=== PATIENT | male | born 1980 | race Caucasian/White ===

== ENCOUNTER 2019-08-03 20:49 | Observation (INO) ==
[2019-08-03] MEDS ORDERED: GI COCKTAIL ED USE PO ONE (21:38)
[2019-08-03] MEDS ORDERED: ONDANSETRON INJ 2 MG/ML 2 ML VIAL IV STA (21:38)
[2019-08-03] MEDS ORDERED: SODIUM CHLORIDE 0.9% 1000ML 1,000 ML IV SCH (21:45)
[2019-08-03 22:00] LABS: Basophils # (auto) 0.02 K/uL (0-0.2); Basophils % (auto) 0.2 %; Eosinophils # (auto) 0.05 K/uL (0-0.5); Eosinophils % (auto) 0.6 %; Hematocrit (blood only) 44.7 % (42-52); Hemoglobin 15.2 g/dL (14.0-18.0); Immature Granulocytes # (auto) 0.02 K/uL (0.00-0.02); Immature Granulocytes % (auto) 0.2 %; Lymphocytes # (auto) 1.56 K/uL (1.2-3.4); Lymphocytes % (auto) 18.5 %; Mean Corpuscular Hemoglobin 31.7 pg (25-34); Mean Corpuscular Volume 93.1 fL (80-100); Mean Platelet Volume 8.8 fL (7.4-10.4); Monocytes # (auto) 0.62 K/uL (0.11-0.59); Monocytes % (auto) 7.3 %; Neutrophils # (auto) 6.18 K/uL (1.4-6.5); Neutrophils % (auto) 73.2 %; Platelet Count 214 K/uL (130-400); RDW Coefficient of Variation 12.7 % (11.5-14.5); RDW Standard Deviation 43.2 fL (36.4-46.3); White Blood Count 8.45 K/uL (4.8-10.8)
[2019-08-03 22:13] LABS: Appearance Urine Clear (Clear); Bilirubin Urine Negative (Negative); Blood Urine Negative (Negative); Color Urine Yellow; Glucose Urine UA Negative (Negative); Ketones Urine Negative (Negative); Leukocyte Esterase Urine Negative (Negative); Nitrite Urine Negative (Negative); Protein Urine Negative (Negative); Specific Gravity Urine 1.017 (1.000-1.030); Urobilinogen Urine Positive (Negative); pH Urine 7.5 (4.5-7.5)
[2019-08-03 22:15] LABS: Alanine Aminotransferase 140 U/L (12-78); Albumin Level 3.6 gm/dl (3.4-5.0); Aspartate Aminotransferase 163 U/L (15-37); Blood Urea Nitrogen 13 mg/dl (7-18); Carbon Dioxide 29 mmol/L (21-32); Chloride 106 mmol/L (98-107); Creatinine Clr Calc Pharmacy 140.2 ml/min; Est GFR (African American) 129.1; Est GFR (Non-African American) 111.4; Glucose 106 mg/dl (70-99); Lipase 102 U/L (73-393); Sodium 140 mmol/L (136-145)
[2019-08-03 22:20] LABS: Alkaline Phosphatase 67 U/L (45-117); Globulin 3.4 gm/dl (2.5-4.0); Troponin I < 0.015 ng/ml (0-0.045)
--- NOTE | 2019-08-03 22:46 | Ultrasound Report ---
US gallbladder HISTORY: 38 years-old Male epi pain acute epigastric abdominal pain COMPARISON: None available TECHNIQUE: Multiple real-time sonographic images of the abdominal right upper quadrant were obtained assessing grayscale appearance and color flow FINDINGS: Pancreas is mostly obscured by bowel gas. The liver appears unremarkable.. Hepatopedal flow noted wit hin the main portal vein. No focal hepatic mass or intrahepatic biliary ductal dilation. Mildly diste nded gallbladder. Additionally, there is mild gallbladder wall thickening measuring up to at least 4 mm. No definite pericholecystic fluid. Layering cholelithiasis and gallbladder sludge. Sonographic Mu rphy sign reported as negative. Normal common bile duct, 5 mm. Imaged right kidney is unremarkable wi thout hydronephrosis. IMPRESSION: 1. Cholelithiasis and gallbladder sludge is noted with mild gallbladder distention and wall thickenin g. The sonographic Lopez sign was reported as negative and no pericholecystic fluid is evident. Find ings are equivocal for acute cholecystitis. Findings could be correlated with nuclear medicine hepato biliary scan if of further clinical concern. 2. No biliary ductal dilation. ACT 112: Negative or not required by law. The above report was generated using voice recognition software. It may contain grammatical, syntax o r spelling errors. Electronically signed by: Bala Blakely M.D. 08/03/2019 10:45 PM
[2019-08-03] MEDS ORDERED: cefOXitin 2,000 MG/60 ML BAG IV STA (23:25)
[2019-08-04] MEDS: LACTATED RINGER'S 1,000 ML IV SCH ×2 (00:55→08:15)
[2019-08-04] MEDS ORDERED: MoRPHine SULFATE 4 MG/ML 1 ML CARP\\VIAL IV PRN (00:59)
[2019-08-04] MEDS ORDERED: ACETAMINOPHEN 1,000 MG/100 ML VIAL IV PRN (00:59)
[2019-08-04] MEDS ORDERED: ONDANSETRON INJ 2 MG/ML 2 ML VIAL IV PRN ×2 (00:59→14:24)
[2019-08-04] MEDS ORDERED: MoRPHine SULFATE 2 MG/ML CARP IV PRN (00:59)
--- NOTE | 2019-08-04 02:35 | Emergency Department Note ---
History of Present Illness General Chief complaint: Abdominal Pain Stated complaint: ABD PAIN History of Present Illness This 38 yo presents to the ER complaining of abdominal pain Location: Upper abdomen Quality: Uncomfortable Severity: Moderate Duration: Tonight Timing: Symptoms started tonight Context: Patient was concerned and came in Modifying factors: better with nothing; worse with activity Patient had a gastric sleeve surgery 2 years ago. He has lost a lot of weight. Patient denies chest pain, dyspnea, fevers, diarrhea, urinary symptoms. He still has his gallbladder. Home Medications Home Medications Medication Instructions Recorded Confirmed Type Bariatric Multivitamins 1 cap PO DAILY 08/03/19 08/03/19 History cefadroxil 500 mg PO BID 08/03/19 08/03/19 History montelukast 10 mg PO DAILY 08/03/19 08/03/19 History sulfacetamide sodium (acne) 1 applic TOPICAL BID 08/03/19 08/03/19 History [[place]] hydrocodone-acetaminophen [[place]] 1 - 2 tab PO Q6H #20 tab 08/04/19 Rx Allergies Allergy/AdvReac Type Severity Reaction Status Date / Time No Known Allergies Allergy Unverified 08/03/19 22:35 Past Med/Surg History Social History Preferred Language: Kinyarwanda Communication Ability: Effective Mercury Cell Cleaner Required: No Beliefs That Will Affect Care: None Current Living Situation: Spouse Feels Safe at Home: Yes Smoking Status: Former smoker Hx Alcohol Use: No Hx Substance Use: No Review of Systems A total of 10 systems reviewed and were otherwise negative Physical Exam Vital Signs Vital Signs - 24 hr 08/03/19 20:54 08/03/19 21:42 08/03/19 23:01 Temperature 36.4 C L Temperature Source Oral Pulse Rate 62 Pulse Rate [Finger] Pulse Rate from SpO2 Sensor Respiratory Rate 20 Respiratory Effort / Characteristics Non-Labored Spontaneous Respiratory Depth Normal Blood Pressure 188/122 H Blood Pressure [Right Arm] 164/101 H Blood Pressure Mean 144 Blood Pressure Mean [Right Arm] 122 Blood Pressure Position Sitting Pulse Oximetry 100 99 Oxygen Delivery Method Room Air Room Air Sepsis Recent Fever Within 48 Hours No Sepsis Action Taken by Nursing No Action Required 08/03/19 23:24 08/03/19 23:30 Temperature Temperature Source Pulse Rate 66 Pulse Rate [Finger] 55 L Pulse Rate from SpO2 Sensor 62 Respiratory Rate 18 19 Respiratory Effort / Characteristics Non-Labored Respiratory Depth Normal Blood Pressure 166/105 H Blood Pressure [Right Arm] 170/107 H Blood Pressure Mean 111 Blood Pressure Mean [Right Arm] 128 Blood Pressure Position Pulse Oximetry 100 98 Oxygen Delivery Method Room Air Sepsis Recent Fever Within 48 Hours Sepsis Action Taken by Nursing VITALS: Vitals are noted on the nurse's note and reviewed by myself. Vital signs stable. GENERAL: Pleasant male, in no acute distress, nondiaphoretic, well-developed well-nourished. SKIN: Capillary reflex less than 2 seconds. HEENT: Normocephalic. PERRLA. EOMI. Nares patent. Mucous membranes moist. Neck is supple without nuchal rigidity. HEART: Regular rate and rhythm without murmurs gallops or rubs. LUNGS: Clear to auscultation bilaterally without wheezes, rales or rhonchi. No retractions or accessory muscle use. ABDOMEN: Positive bowel sounds x 4. Normal tympanic percussion. Soft, tender to palpation epigastric right upper quadrant, without masses or organomegaly. No guarding or rebound tenderness. No CVA tenderness MUSCULOSKELETAL: No gross musculoskeletal defects. NEURO: Patient was alert and oriented to person place and time. Normal sensation to light and sharp touch. No focal neurological deficits. Course Administered Medications Discontinued Medications Al Hydrox/Mg Hydrox/Simethicone () 1 dose PO ONE ONE Stop: 08/03/19 21:39 Last Admin: 08/03/19 21:56 Dose: 1 dose Documented by: [id number] Bupivacaine HCl/Epinephrine Bitart (Sensorcaine/Epinephrine 0.5% Mpf 1:200,000) Confirm Administered Dose 10 ml .ROUTE .STK-MED ONE Stop: 08/04/19 14:35 Last Admin: 08/04/19 15:24 Dose: 20 ml Documented by: [id number] Sodium Chloride (Nss 1000ml) 1,000 mls @ 999 mls/hr IV .Q1H1M ANA Stop: 08/03/19 22:45 Last Infusion: 08/03/19 23:07 Dose: 0 mls/hr Documented by: [id number] Admin: 08/03/19 21:56 Dose: 999 mls/hr Documented by: [id number] Cefoxitin Sodium (Mefoxin) 2,000 mg in 60 mls @ 100 mls/hr IV NOW STA Stop: 08/04/19 00:00 Last Infusion: 08/04/19 00:18 Dose: 0 mls/hr Documented by: [id number] Admin: 08/03/19 23:35 Dose: 100 mls/hr Documented by: [id number] Lactated Ringer's (Lr) 1,000 mls @ 125 mls/hr IV .Q8H ANA Stop: 09/03/19 00:58 Last Infusion: 08/04/19 14:12 Dose: 125 mls/hr Documented by: [id number] Admin: 08/04/19 08:15 Dose: 125 mls/hr Documented by: [id number] Infusion: 08/04/19 08:15 Dose: 125 mls/hr Documented by: [id number] Admin: 08/04/19 00:55 Dose: 125 mls/hr Documented by: [id number] Cefazolin Sodium (Ancef 2000mg) 2,000 mg in 15 mls @ 3.75 mls/min IV PREOP ONE Stop: 08/04/19 15:21 Last Admin: 08/04/19 14:58 Dose: 3.75 mls/min Documented by: [id number] Ondansetron HCl (Zofran) 4 mg IV NOW STA Stop: 08/03/19 21:39 Last Admin: 08/04/19 01:10 Dose: Not Given Documented by: [id number] Medical Decision Making Medical Records Attestation: I reviewed the patient's medical records. Home Medications Current Medication List: was personally reviewed by me Laboratory Data Attestation: I reviewed the patient's lab results. Result diagrams: 08/03/19 21:45 08/03/19 21:45 Lab Results 08/03/19 08/03/19 08/03/19 Range/Units 21:45 21:45 21:45 WBC 8.45 (4.8-10.8) K/uL RBC 4.80 (4.7-6.1) M/uL Hgb 15.2 (14.0-18.0) g/dL Hct 44.7 (42-52) % MCV 93.1 (80-100) fL MCH 31.7 (25-34) pg MCHC 34.0 (32-36) g/dL RDW Std Deviation 43.2 (36.4-46.3) fL RDW Coeff of Dipak 12.7 (11.5-14.5) % Plt Count 214 (130-400) K/uL MPV 8.8 (7.4-10.4) fL Immature Gran % (Auto) 0.2 % Neut % (Auto) 73.2 % Lymph % (Auto) 18.5 % [place] % (Auto) 7.3 % Eos % (Auto) 0.6 % Baso % (Auto) 0.2 % Immature Gran # (Auto) 0.02 (0.00-0.02) K/uL Neut # (Auto) 6.18 (1.4-6.5) K/uL Lymph # (Auto) 1.56 (1.2-3.4) K/uL [place] # (Auto) 0.62 H (0.11-0.59) K/uL Eos # (Auto) 0.05 (0-0.5) K/uL Baso # (Auto) 0.02 (0-0.2) K/uL Sodium 140 (136-145) mmol/L Potassium 4.0 (3.5-5.1) mmol/L Chloride 106 (98-107) mmol/L Carbon Dioxide 29 (21-32) mmol/L Anion Gap 5.0 (3-11) BUN 13 (7-18) mg/dl Creatinine 0.82 (0.6-1.4) mg/dl Est Cr Clr Drug Dosing 140.2 ml/min Est GFR ( Amer) 129.1 Est GFR (Non-Af Amer) 111.4 BUN/Creatinine Ratio 16.0 (10-20) Glucose 106 H (70-99) mg/dl Calcium 9.0 (8.5-10.1) mg/dl Total Bilirubin 1.0 (0.2-1) mg/dl AST 163 H (15-37) U/L ALT 140 H (12-78) U/L Alkaline Phosphatase 67 (45-117) U/L Troponin I < 0.015 (0-0.045) ng/ml Total Protein 7.0 (6.4-8.2) gm/dl Albumin 3.6 (3.4-5.0) gm/dl Globulin 3.4 (2.5-4.0) gm/dl Albumin/Globulin Ratio 1.0 (0.9-2) Lipase 102 (73-393) U/L Urine Color Yellow Urine Appearance Clear (Clear) Urine pH 7.5 (4.5-7.5) Ur Specific [place] 1.017 (1.000-1.030) Urine Protein Negative (Negative) Urine Glucose (UA) Negative (Negative) Urine Ketones Negative (Negative) Urine Blood Negative (Negative) Urine Nitrite Negative (Negative) Urine Bilirubin Negative (Negative) Urine Urobilinogen Positive H (Negative) Ur Leukocyte Esterase Negative (Negative) Imaging Data Attestation: I personally reviewed and interpreted this imaging study as follows: Blood Pressure Blood Pressure Findings: Elevated blood pressure Blood Pressure Disposition: Referred to patients primary care provider MDM Narrative Prior records/ancillary studies reviewed. Triage Nursing notes reviewed. Additional history obtained from family. The patient's history was concerning for abdominal pain. Differential diagnosis: Etiologies such as appendicitis, diverticulitis, PUD, biliary pathology, UTI, pancreatitis, obstruction, mesenteric ischemia, aortic pathology, infections, inflammatory bowel disease, renal colic, as well as others were entertained. Physical examination findings: As above. ER treatment provided: IV fluids, Zofran, GI cocktail On reassessment the patient felt better. Diagnostics interpreted by me: ECG: Ordered for epigastric pain EKG: Normal sinus, normal intervals, no acute ST-T wave changes. Impression normal sinus rhythm interpreted by myself I think arrhythmia is unlikely. EKG shows normal sinus rhythm with no interval abnormalities such as QT prolongation or WPW. There are no findings to suggest Brugada syndrome. Cardiac monitoring in the emergency department reveals no tachycardic or bradycardic dysrhythmia. Hypertrophic cardiomyopathy was considered but there are no clear historical elements pointing toward this. EKG is not suggestive. The QRS voltage is not extremely large and there are no suggestive Q waves. The labs revealed elevated LFTs, no leukocytosis Imaging studies: US gallbladder HISTORY: 38 years-old Male epi pain acute epigastric abdominal pain COMPARISON: None available TECHNIQUE: Multiple real-time sonographic images of the abdominal right upper quadrant were obtained assessing grayscale appearance and color flow FINDINGS: Pancreas is mostly obscured by bowel gas. The liver appears unremarkable.. Hepatopedal flow noted within the main portal vein. No focal hepatic mass or intrahepatic biliary ductal dilation. Mildly distended gallbladder. Additionally, there is mild gallbladder wall thickening measuring up to at least 4 mm. No definite pericholecystic fluid. Layering cholelithiasis and gallbladder sludge. Sonographic Lopez sign reported as negative. Normal common bile duct, 5 mm. Imaged right kidney is unremarkable without hydronephrosis. IMPRESSION: 1. Cholelithiasis and gallbladder sludge is noted with mild gallbladder distention and wall thickening. The sonographic Lopez sign was reported as negative and no pericholecystic fluid is evident. Findings are equivocal for acute cholecystitis. Findings could be correlated with nuclear medicine hepatobiliary scan if of further clinical concern. 2. No biliary ductal dilation. ACT 112: Negative or not required by law. The above report was generated using voice recognition software. It may contain grammatical, syntax or spelling errors. Electronically signed by: Bala Blakely M.D. Consultation: A consultation was placed with Dr. Rod. The case was discussed and diagnostics were reviewed. The patient was admitted to their service for possible cholecystectomy in the morning. Exam and history seem consistent with acute cholecystitis. Surgery was consulted and will admit the patient. Patient was started antibiotics. Patient is agreeable treatment plan of admission. By the evaluation outlined above emergent etiologies such as appendicitis, diverticulitis, UTI, pancreatitis, obstruction, mesenteric ischemia, aortic pathology, inflammatory bowel disease, renal colic, as well as others were deemed relatively unlikely. The pt informed about the findings as listed above. All questions were answered and pleased with the treatment. Case reviewed with my attending The chart was completed utilizing [employer] voice recognition software. Grammatical errors, random word insertions, pronoun errors, and incomplete sentences are an occassional consequence of this system due to software limitations, ambient noise, and hardware issues. Any formal questions or concerns about the content, text, or information contained within the body of this dictation should be directly addressed to the physician surveyor's assistant for clarification. Impression & Plan Acute cholecystitis Discharge Plan Visit Data *Final* Discharge Date/Time: 08/04/19 00:17 Chief Complaint: Abdominal Pain Stated Complaint: ABD PAIN ED Provider: Morgan Machuca ED Midlevel Provider: Renu Zelaya Discharge Problem: Acute cholecystitis Patient Disposition: Admitted As Inpatient Condition: Good Discharge Instructions Interventions: ED Discharge Assessment Last Done: 08/04/19 00:17
--- NOTE | 2019-08-04 09:25 | History & Physical Report ---
Date of Service August 04, 2019 Assessment & Plan (1) Acute cholecystitis: Clinically and radiographically consistent with acute cholecystitis. We discussed his options. We discussed the risks of cholecystectomy which would include bleeding, infection, DVT, PE, [place], CVA, injury to the bile ducts or bile leaks or injury to other organs etc. Following our discussion I answered his questions. Because he is from out of town he would prefer to have the gallbladder surgery today while he is here. We will proceed with laparoscopic possible open cholecystectomy today. History of Present Illness Primary Care Provider: NO PCP Patient has had about a 2 to 3-week history of postprandial epigastric to right upper quadrant discomfort with radiation into his back. Yesterday evening he had a severe bout which brought him to the emergency room. Ultrasound reveals stones and sludge as well as gallbladder wall thickening. Patient is feeling better this morning after some medication IV fluids and n.p.o. status. Allergies Allergy/AdvReac Type Severity Reaction Status Date / Time No Known Allergies Allergy Unverified 08/03/19 22:35 Home Medications Home Medications Medication Instructions Recorded Confirmed Type cefadroxil 500 mg PO BID 08/03/19 08/03/19 History montelukast 10 mg PO DAILY 08/03/19 08/03/19 History zmhceapaezst-fvx-obou-FA-vit K 1 cap PO DAILY 08/03/19 08/03/19 History [Bariatric Multivitamins] sulfacetamide sodium (acne) 1 applic TOPICAL BID 08/03/19 08/03/19 History [[place]] Past Med/Surg History Social History Preferred Language: Maltese Communication Ability: Effective Filling Hand Required: No Beliefs That Will Affect Care: None Current Living Situation: Spouse Feels Safe at Home: Yes Smoking Status: Former smoker Hx Alcohol Use: No Hx Substance Use: No Review of Systems All systems reviewed & are unremarkable except as noted in HPI & below Physical Exam Constitutional: WD/WN, vitals as above no acute distress and not ill appearing Eyes: PERRL, conjunctivae normal, anicteric sclerae EOM intact bilaterally ENMT: external ear and nose normal, oropharynx normal Ears: no hearing impairment Neck: trachea midline, no thyromegaly Respiratory: normal respiratory effort; no respiratory distress and does not use accessory muscles Cardiovascular: Rate/Rhythm: regular rate and regular rhythm Gastrointestinal (Abdomen): normal bowel sounds, soft, nontender, no hepatosplenomegaly Abdomen is soft with mild right upper quadrant tenderness. No guarding rebound or rigidity. Skin: no rashes, warm and dry Psychiatric: Orientation: alert, oriented x 3 and cooperative Results & Data Vital Signs (Past 12 Hours) Vital Signs Temp Pulse Pulse Resp BP BP BP 08/04/19 07:55 36.7 C 61 18 158/96 H 08/04/19 02:35 52 L 153/84 H 08/04/19 00:30 36.5 C 56 L 18 169/118 H 08/04/19 00:00 58 L 21 155/110 H 08/03/19 23:59 55 L 20 165/106 H 08/03/19 23:30 66 19 166/105 H 08/03/19 23:24 55 L 18 170/107 H 08/03/19 23:01 08/03/19 21:42 164/101 H Pulse Ox 08/04/19 07:55 96 08/04/19 02:35 08/04/19 00:30 98 08/04/19 00:00 100 08/03/19 23:59 98 08/03/19 23:30 98 08/03/19 23:24 100 08/03/19 23:01 99 08/03/19 21:42 Code Status & VTE Plan VTE Prophylaxis Plan VTE Prophylaxis will be ordered: Yes
[2019-08-04] MEDS ORDERED: fentaNYL citrate 100 MCG/2 ML VIAL ONE ×2 (14:21→15:22)
[2019-08-04] MEDS ORDERED: MIDAZOLAM HCL 1 MG/ML 2ML VIAL ONE (14:21)
--- NOTE | 2019-08-04 14:22 | Anesthesiology Consultation ---
Date of Service August 04, 2019 Assessment & Plan (1) History of sleeve gastrectomy: (2) Acute cholecystitis: (3) H/O gastric bypass: (4) Encounter for pre-operative examination: History Surgery Operation Date: 08/04/19 15:00 Proposed Procedures p Laparoscopic Cholecystectomy - Freeman Rod, DO Height/Weight Height: 5 ft 8 in Weight: 101.8 kg Allergies Allergy/AdvReac Type Severity Reaction Status Date / Time No Known Allergies Allergy Unverified 08/03/19 22:35 Medications Home Medications Medication Instructions Recorded Confirmed Last Taken cefadroxil 500 mg PO BID 08/03/19 08/03/19 07/12/19 montelukast 10 mg PO DAILY 08/03/19 08/03/19 Unknown uhrsrylgbpmx-rzg-ikpl-FA-vit K 1 cap PO DAILY 08/03/19 08/03/19 Unknown [Bariatric Multivitamins] sulfacetamide sodium (acne) 1 applic TOPICAL BID 08/03/19 08/03/19 Unknown [[place]] Active Medications Generic Name Dose Route Start Last Admin Trade Name Alex PRN Reason Stop Dose Admin Lactated Ringer's 1,000 mls @ 125 mls/hr 08/04/19 00:59 08/04/19 14:12 Lr IV 09/03/19 00:58 125 mls/hr .Q8H ANA Infusion NPO Date Last Intake of Fluids: 08/04/19 Time Last Intake of Fluids: 00:35 Date Last Intake of Solids: 08/04/19 Time Last Intake of Solids: 00:00 Social History Smoking Status: Former smoker Hx Alcohol Use: No Hx Substance Use: No Physical Exam Vital Signs Last Vital Signs Temp 36.7 C 08/04/19 07:55 Pulse 61 08/04/19 07:55 Resp 18 08/04/19 07:55 BP 158/96 H 08/04/19 07:55 Pulse Ox 96 08/04/19 07:55 Testing Laboratory Results 08/03/19 21:45 08/03/19 21:45 Urine Color Yellow 08/03/19 21:45 Urine Appearance Clear (Clear) 08/03/19 21:45 Urine pH 7.5 (4.5-7.5) 08/03/19 21:45 Ur Specific [place] 1.017 (1.000-1.030) 08/03/19 21:45 Urine Protein Negative (Negative) 08/03/19 21:45 Urine Glucose (UA) Negative (Negative) 08/03/19 21:45 Urine Ketones Negative (Negative) 08/03/19 21:45 Urine Nitrite Negative (Negative) 08/03/19 21:45 Ur Leukocyte Esterase Negative (Negative) 08/03/19 21:45
[2019-08-04] MEDS ORDERED: HYDROmorphone INJ 1 MG/ML SYRINGE IV PRN (14:24)
[2019-08-04] MEDS ORDERED: ePHEDrine sulfate 50 MG/ML AMP IV PRN (14:24)
[2019-08-04] MEDS ORDERED: fentaNYL citrate 100 MCG/2 ML VIAL IV PRN (14:24)
[2019-08-04] MEDS ORDERED: ATROPINE SULFATE 0.1 MG/ML 10ML SYR IV PRN (14:24)
[2019-08-04] MEDS ORDERED: SCOPOLAMINE 1.5 MG TDSY ONE (14:30)
[2019-08-04] MEDS ORDERED: BUPIVACAINE/EPINEPHRINE 0.5% MPF 1:200,000 10 ML VIAL ONE (14:34)
[2019-08-04] MEDS ORDERED: DEXAMETHASONE SOD INJ 4 MG/ML VIAL ONE (15:01)
[2019-08-04] MEDS ORDERED: LIDOCAINE HCL 2% 2 ML VIAL/AMP(20MG/ML) INFIL ONE (15:01)
[2019-08-04] MEDS ORDERED: ROCURONIUM BROMIDE 10 MG/ML 5 ML VIAL ONE (15:01)
[2019-08-04] MEDS ORDERED: GLYCOPYRROLATE 0.2 MG/ML VIAL ONE (15:01)
[2019-08-04] MEDS ORDERED: NEOSTIGMINE METHYLSULFATE 5 MG/5 ML SYR ONE (15:01)
[2019-08-04] MEDS ORDERED: PROPOFOL IV EMULSION 10 MG/ML 20 ML VIAL IV ONE (15:01)
[2019-08-04] MEDS ORDERED: ONDANSETRON INJ 2 MG/ML 2 ML VIAL ONE (15:01)
[2019-08-04] MEDS ORDERED: LARYING-O-JET KIT (LTA) ONE (15:04)
[2019-08-04] MEDS ORDERED: CEFAZOLIN 250 MG/ML 1 GM VIAL ONE (15:18)
[2019-08-04] MEDS ORDERED: CEFAZOLIN 2000MG 2,000 MG/15 ML SYR IV ONE (15:18)
--- NOTE | 2019-08-04 16:01 | Operative Report ---
[facility] Post Operative Report Pre & Post Diagnosis Operation Date: 08/04/19 15:00 Pre-Op Diagnosis: Acute CHOLECYSTITIS Post-Op Diagnosis: Acute CHOLECYSTITIS I identified the patient and participated in the time-out.: Yes Procedure Operation Date: 08/04/19 15:00 Actual Procedures p Laparoscopic Cholecystectomy(Not Applicable) - Freeman Rod DO Surgeon Freeman Rod DO Boxing Instructor n/a Estimated Blood Loss 5 Findings Consistent with Post-Op Diagnosis Specimens gallbladder Description of Procedure After informed consent was obtained the patient was taken to the operating room and placed in the supine position. After successful intubation the abdomen was sterilely prepped and draped in usual fashion. A periumbilical incision was made with an 11 blade scalpel and carried down through the soft tissue using electrocautery. The anterior rectus fascia was opened using electrocautery and 2 #0 Vicryl stay sutures were placed. The peritoneum was elevated with hemostats and incised under direct vision using Metzenbaum scissors. A finger sweep was performed and a 12 mm Arguello trocar was placed. The abdomen was insufflated to 18 mmHg. The laparoscope was inserted and the abdomen was examined in 360. No gross abnormalities were identified. A subxiphoid 5 mm port and 2 right upper quadrant 5 mm ports were placed under direct vision. The patient was placed in a reverse Trendelenburg position and slightly airplaned to the left. The gallbladder was grasped and elevated superiorly and laterally. A [place] dissector was used to take down adhesions around the neck of the gallbladder. The cystic duct was identified and skeletonized. It was clipped twice proximally and once distally and transected using a laparoscopic scissor. In similar fashion the cystic artery was identified and skeletonized clipped and divided. The gallbladder was removed from the gallbladder fossa with electrocautery. It did have some wall edema consistent with acute cholecystitis. It was placed into an Endo Catch bag. Thorough irrigation was performed. At the end of the procedure there was adequate hemostasis and no evidence of any bile leaks. A final look around the abdomen showed no other abnormalities. His previous sleeve gastrectomy looked fine. The gallbladder and trochars were all removed and the abdomen was desufflated. The fascia of the camera port was closed using 0 Vicryl in a [id number] fashion. All the wounds were irrigated and closed using 4-0 Monocryl. Marcaine was injected around them for postoperative analgesia and skin glue used as a dressing. The patient was awaken extubated and transferred to recovery in stable condition. I attest to the content of the Intraoperative Record and any orders documented therein. Any exceptions are noted below.
--- NOTE | 2019-08-04 16:13 | Anesthesiology Progress Note ---
Date of Service August 04, 2019 Anesthesia Post Procedure Vital Signs Vital Signs: Temp Pulse Pulse Pulse Resp BP BP 08/04/19 16:05 68 16 08/04/19 15:55 63 15 08/04/19 15:49 36.3 C L 86 14 08/04/19 07:55 36.7 C 61 18 158/96 H 08/04/19 02:35 52 L 153/84 H 08/04/19 00:30 36.5 C 56 L 18 169/118 H 08/04/19 00:00 58 L 21 155/110 H 08/03/19 23:59 55 L 20 165/106 H 08/03/19 23:30 66 19 166/105 H 08/03/19 23:24 55 L 18 08/03/19 23:01 08/03/19 21:42 08/03/19 20:54 36.4 C L 62 20 188/122 H BP Pulse Ox 08/04/19 16:05 150/88 H 100 08/04/19 15:55 158/93 H 100 08/04/19 15:49 174/96 H 100 08/04/19 07:55 96 08/04/19 02:35 08/04/19 00:30 98 08/04/19 00:00 100 08/03/19 23:59 98 08/03/19 23:30 98 08/03/19 23:24 170/107 H 100 08/03/19 23:01 99 08/03/19 21:42 164/101 H 08/03/19 20:54 100 Pain Intensity Upper Abdomen: Pain Intensity: 3 Transfer of Care Handoff Completed per policy Notes Mental Status: alert / awake / arousable and participated in evaluation Patient Amnestic to Procedure: Yes Nausea / Vomiting: adequately controlled Pain: adequately controlled Airway Patency, RR, SpO2: stable & adequate BP & HR: stable & adequate Hydration State: stable & adequate Anesthetic Complications: no major complications apparent and Pt Satisfied with anesthetic care
--- NOTE | 2019-08-10 10:40 | Discharge Summary ---
Date of Service August 10, 2019 Admission HPI Per Admitting Provider Patient has had about a 2 to 3-week history of postprandial epigastric to right upper quadrant discomfort with radiation into his back. Yesterday evening he had a severe bout which brought him to the emergency room. Ultrasound reveals stones and sludge as well as gallbladder wall thickening. Patient is feeling better this morning after some medication IV fluids and n.p.o. status. Principal Diagnosis Cholelithiasis, Acute cholecystitis Discharge Exam Gastrointestinal (Abdomen) Inspection/Auscultation: + abdominal surgical incision (clean, dry) Discharge Data Allergies Allergy/AdvReac Type Severity Reaction Status Date / Time No Known Allergies Allergy Unverified 08/03/19 22:35 Consultations 08/03/19 23:25 ED Decision to Admit Stat Procedures Performed Operation Date: 08/04/19 15:00 Actual Procedures p Laparoscopic Cholecystectomy(Not Applicable) - Freeman Rod DO Ordered Studies 08/03/19 21:41 gallbladder Stat Hospital Course (1) Acute cholecystitis: 38 y/o male presented to ED complaining of abdominal pain. Evaluation was consistent with acute cholecystitis. He was admitted the the surgical service overnight and taken to the operating room the next day for laparoscopic cholecystectomy. He was returned to his room and was able to tolerate an advancing diet and was stable for discharge later that evening. Total Time Total Time Spent Total Time Spent (In Minutes): 10 Discharge Plan Discharge Items Patient Disposition: Home - Self-Care Reason For Visit: CHOLECYSTITIS Discharge Diagnosis: cholecystitis Condition on Discharge: Good Activity: As commented below Lifting: No more than 10 pounds Bathing Comment: may shower. no tub soaks Exercise/Sports: Wait until after follow-up appointment Non-emergency contact: Surgeon Call non-emergency contact if: you have any medication questions, your pain is concerning for you, your temperature is above 101.5, your wound has increased redness and your wound has increased drainage Follow-up/Referrals: Freeman Rod DO [Surgeon] - PCP,NO [Primary Care Provider] - Diet: Regular Addtl Attending Provider Instructions: you may follow up with me or your pcp or a surgeon in your hometown. should see a physician within 1-2 weeks. Pending Studies at Discharge: Yes Studies:: pathology report Stand-Alone Forms: Call Back Authorization, [facility], Work/School Release (Inpt), Smoking Cessation Medications and DC Order Prescriptions: New hydrocodone-acetaminophen [[place]] 5-325 mg tablet 1 - 2 tab PO Q6H Qty: 20 RF: 0 Continued sulfacetamide sodium (acne) [[place]] 10 % suspension 1 applic TOPICAL BID RF: 0 cefadroxil 500 mg capsule 500 mg PO BID RF: 0 montelukast 10 mg tablet 10 mg PO DAILY RF: 0 Bariatric Multivitamins 45 mg iron- 800 mcg-120 mcg Capsule 1 cap PO DAILY RF: 0 Discharge Orders: Discharge Order (Routine); Ordered 08/04/19 Ordered By: Freeman Lyons/Other Patient Handouts: Pain Management, ED Diet Low Fat Admission Data Admit Date/Time: 08/03/19 23:39 Attending Provider: Freeman Rod Admit Provider: Freeman Rod Primary Care Provider: PCP,NO Other Providers: Freeman Rod Other Interventions: Discharge Summary Assessment (RN) Last Done: 08/04/19 19:14 DC Date/Time DO NOT enter until pt leaves facility: 08/04/19 20:07
== END 2019-08-04 20:07 | disposition home or self-care (01) ==
LOC: 3W 20:49 → ED 20:49 → 3W 08-04 00:17